=== PATIENT | female | born 1980 | race American Indian/Alaskan Native ===

== ENCOUNTER 2021-05-23 13:20 | Outpatient (CLI) | payer OTHER ==
[2021-05-23 14:33] LABS: Alanine Aminotransferase 10 units/L (7-56); Albumin 4.3 g/dL (3.9-5); Blood Urea Nitrogen 13 mg/dL (7-17); Calcium 8.9 mg/dL (8.4-10.2); Hemolysis Index 1
[2021-05-23 14:43] LABS: BUN/Creatinine Ratio 22
[2021-05-25 23:48] LABS: ANA Screen, IFA Negative (Negative)
[2021-05-26 01:42] LABS: Gamma Globulin 1.4 g/dL (0.8-1.7)
[2021-05-26 12:18] LABS: Vitamin D, 25-OH, D2 <4 ng/mL
== END 2021-05-23 13:21 | disposition home or self-care (01) ==
LOC: LAB 13:20
PROVIDERS: ATTEND Specialist
DX: G61.9 Inflammatory polyneuropathy, unspecified (principal); E07.9 Disorder of thyroid, unspecified; R73.03 Prediabetes
CPT/HCPCS: 36415; 80053; 82306; 82607; 83036; 83921; 84165; 84443; 85652; 86038; 86225; 86334; 86431; 86592